=== PATIENT | male | born 1965 | race Caucasian/White ===

== ENCOUNTER 2017-06-26 04:20 | Emergency (ER) | payer SELFPAY ==
[~2017-06-26] VITALS: Ht 180.3 cm; Wt 81.5 kg
[2017-06-26 04:23] VITALS: BP 155/95; PULSE 75; RESP 18; TEMP 97.8; O2SAT 98
[2017-06-26] MEDS ORDERED: [UNRECOGNIZED DRUG - CODE] PO (04:29)
[2017-06-26] MEDS ORDERED: DIATRIZOATE MEGLUM/DIATRIZOATE SOD 9 ML CUP ONE (05:19)
--- NOTE | 2017-06-26 05:19 | PD ---
HPI Chief Complaint: Lump, Cyst, Hernia Time Seen by Provider: 04:36 Travel History International Travel<30 days: No Contact w/Intl Traveler<30days: No Traveled to known affect area: No History of Present Illness HPI Patient is a 51-year-old male who recently moved down here from [place]. he says that he has noticed that he's having back pain had an x-ray that showed he is body is "trying to grow a 6th lumbar spine vertebrae " slightly bizarre answer he's been wearing lower back support belt now he notices that he is having bulging in his hernia area right scrotum. Worse at night he says he is able to push it back in himself. Now it's gotten worse in the last few days he comes to the ER It was hurting him so he was worried it was "getting to a critical point" Patient seems to give long-winded responses to simple questions about his physicality and has slightly bizarre affect. However his thought are related although his thoughts are slightly tangential. Denies nausea vomiting diarrhea no chest pain no sweating or diaphoresis. He has not seen another doctor for this complaint [facility] Past Medical History Musculoskeletal: Yes (chronic back pain, R knee pain, ) Tetanus Vaccination: Unknown Influenza Vaccination: No Past Surgical History Surgical History: No Previous Surgery Social History Alcohol Use: No Tobacco Use: No Substance Use: No Allergies-Medications (Allergen,Severity, Reaction): Coded Allergies: No Known Drug Allergies (Verified Allergy, Unknown, 06/26/17) Reported Meds & Prescriptions Reported Meds & Active Scripts Active Reported B-12 (Cobalamine Combinations) 100-5,000 Mcg Subl 1 Tab PO DAILY Review of Systems Except as stated in HPI: all other systems reviewed are Neg Genitourinary: Positive: Other (right-sided inguinal pain) Physical Exam Narrative GENERAL: Nontoxic-appearing awake alert SKIN: Warm and dry. HEAD: Atraumatic. Normocephalic. EYES: Pupils equal and round. No scleral icterus. No injection or drainage. ENT: No nasal bleeding or discharge. Mucous membranes pink and moist. NECK: Trachea midline. No JVD. CARDIOVASCULAR: Regular rate and rhythm. RESPIRATORY: No accessory muscle use. Clear to auscultation. Breath sounds equal bilaterally. GASTROINTESTINAL: Abdomen inguinal right sided hernia exam there is no bowel protruding through the direct or indirect canal. Bilateral there is no hernia patient coughs there is no bulging no hernias felt the base of the penis Testicles are normal bilateral area the rest of the abdomen is soft, non-tender , nondistended. Hepatic and splenic margins not palpable. MUSCULOSKELETAL: Extremities without clubbing, cyanosis, or edema. No obvious deformities. NEUROLOGICAL: Awake and alert. No obvious cranial nerve deficits. Motor grossly within normal limits. Five out of 5 muscle strength in the arms and legs. Normal speech. PSYCHIATRIC: Appropriate mood and affect; insight and judgment normal. Data Data Last Documented VS Vital Signs Date Time Temp Pulse Resp B/P (MAP) Pulse Ox O2 Delivery O2 Flow Rate FiO2 06/26/17 08:44 06/26/17 07:12 73 18 06/26/17 07:11 98 Room Air 06/26/17 04:23 97.8 Orders Orders Complete Blood Count With Diff (06/26/17 05:15) Comprehensive Metabolic Panel (06/26/17 05:15) Prothrombin Time / Inr (Pt) (06/26/17 05:15) Ct Abd/Pel W Iv Contrast(Rout) (06/26/17 ) Oral Contrast - Adult (06/26/17 05:18) Diatrizoate Liq ( Gastromaciel Liq) (06/26/17 05:19) Iohexol 350 Inj (Omnipaque 350 Inj) (06/26/17 07:41) Ed Discharge Order (06/26/17 08:26) Labs Laboratory Tests Test 06/26/17 05:00 White Blood Count 4.4 TH/MM3 Red Blood Count 4.30 MIL/MM3 Hemoglobin 12.8 GM/DL Hematocrit 37.1 % Mean Corpuscular Volume 86.3 FL Mean Corpuscular Hemoglobin 29.8 PG Mean Corpuscular Hemoglobin Concent 34.5 % Red Cell Distribution Width 13.1 % Platelet Count 311 TH/MM3 Mean Platelet Volume 7.6 FL Neutrophils (%) (Auto) 55.9 % Lymphocytes (%) (Auto) 29.5 % Monocytes (%) (Auto) 9.9 % Eosinophils (%) (Auto) 4.2 % Basophils (%) (Auto) 0.5 % Neutrophils # (Auto) 2.5 TH/MM3 Lymphocytes # (Auto) 1.3 TH/MM3 Monocytes # (Auto) 0.4 TH/MM3 Eosinophils # (Auto) 0.2 TH/MM3 Basophils # (Auto) 0.0 TH/MM3 CBC Comment DIFF FINAL Differential Comment Prothrombin Time 11.7 SEC Prothromb Time International Ratio 1.2 RATIO Blood Urea Nitrogen 10 MG/DL Creatinine 0.96 MG/DL Random Glucose 92 MG/DL Total Protein 6.9 GM/DL Albumin 3.9 GM/DL Calcium Level 8.2 MG/DL Alkaline Phosphatase 79 U/L Aspartate Amino Transf (AST/SGOT) 25 U/L Alanine Aminotransferase (ALT/SGPT) 31 U/L Total Bilirubin 0.3 MG/DL Sodium Level 141 MEQ/L Potassium Level 4.2 MEQ/L Chloride Level 108 MEQ/L Carbon Dioxide Level 27.5 MEQ/L Anion Gap 6 MEQ/L Estimat Glomerular Filtration Rate 83 ML/MIN [facility] Medical Decision Making Medical Screen Exam Complete: Yes Emergency Medical Condition: Yes Differential Diagnosis pt has abdo pain colitis vs hernia inguinal vs radiculopathy SBO other , possible slight hernia Narrative Course pt has CT pending PE exam does not reveal a hernia so my PE does not reveal diagnosis , CT will define Diagnosis Primary Impression: Abdominal pain Qualified Codes: R10.31 - Right lower quadrant pain Patient Instructions: Abdominal Pain (ED), General Instructions Erik Murillo MD Jun 26, 2017 05:19
[2017-06-26 05:29] LABS: AUTOMATED NEUTROPHIL # 2.5 TH/MM3 (1.8-7.7); BASOPHIL % 0.5 % (0.0-2.0); EOSINOPHIL # 0.2 TH/MM3 (0-0.4); EOSINOPHIL % 4.2 % (0.0-4.0); HEMATOCRIT 37.1 % (39.0-51.0); HEMOGLOBIN 12.8 GM/DL (13.0-17.0); LYMPH % 29.5 % (9.0-44.0); LYMPHOCYTE # 1.3 TH/MM3 (1.0-4.8); MEAN CELL VOLUME 86.3 FL (80.0-100.0); MEAN CORPUSCULAR HEMOGLOBIN 29.8 PG (27.0-34.0); MEAN CORPUSCULAR HGB CONC 34.5 % (32.0-36.0); MEAN PLATELET VOLUME 7.6 FL (7.0-11.0); MONO % 9.9 % (0.0-8.0); MONOCYTE # 0.4 TH/MM3 (0-0.9); NEUT % 55.9 % (16.0-70.0); PLATELET COUNT 311 TH/MM3 (150-450); RED CELL DISTRIBUTION WIDTH 13.1 % (11.6-17.2); WHITE BLOOD COUNT 4.4 TH/MM3 (4.0-11.0)
[2017-06-26 05:41] LABS: INTERNATIONAL NORMALIZED RATIO 1.2 RATIO; PROTHROMBIN TIME - PATIENT 11.7 SEC (9.8-11.6)
[2017-06-26 05:58] LABS: ALBUMIN 3.9 GM/DL (3.4-5.0); ALT (GPT) 31 U/L (12-78); AST (GOT) 25 U/L (15-37); BICARBONATE 27.5 MEQ/L (21.0-32.0); BLOOD UREA NITROGEN 10 MG/DL (7-18); CALCIUM 8.2 MG/DL (8.5-10.1); CHLORIDE 108 MEQ/L (98-107); CREATININE 0.96 MG/DL (0.60-1.30); GLOMERULAR FILTRATION RATE 83 ML/MIN (>89); GLUCOSE,RANDOM 92 MG/DL (74-106); SODIUM (NA) 141 MEQ/L (136-145)
[2017-06-26 06:01] LABS: ALKALINE PHOSPHATASE 79 U/L (45-117); TOTAL BILIRUBIN ADULT 0.3 MG/DL (0.2-1.0); TOTAL PROTEIN 6.9 GM/DL (6.4-8.2)
[2017-06-26 07:11] VITALS: BP 127/75; PULSE 73; RESP 18; O2SAT 98
[2017-06-26] MEDS ORDERED: IOHEXOL 350 MG/ML 10 ML VIAL (for RAD DIAG) IVCONTRAST ONE (07:41)
--- NOTE | 2017-06-26 08:03 | RADRPT ---
EXAM DATE/TIME: 06/26/2017 07:28 [place] COMPARISON: No previous studies available for comparison. INDICATIONS : Right sided groin pain. IV CONTRAST: 94 cc Omnipaque 350 (iohexol) IV ORAL CONTRAST: Prescribed oral contrast ingested. RADIATION DOSE: 13.51 CTDIvol (mGy) MEDICAL HISTORY : None SURGICAL HISTORY : None. ENCOUNTER: Initial ACUITY: 1 day PAIN SCALE: 5/10 LOCATION: Right lower quadrant TECHNIQUE: Volumetric scanning of the abdomen and pelvis was performed. Using automated exposure control and ad justment of the mA and/or kV according to patient size, radiation dose was kept as low as reasonably achievable to obtain optimal diagnostic quality images. DICOM format image data is available electro nically for review and comparison. FINDINGS: No pleural or pericardial effusions. Liver, gallbladder, spleen, pancreas, adrenal glands are unremar kable. Bilateral renal cysts are noted including left parapelvic cysts, 8mm cortical cyst at the midp ole, and a right mid pole 2.1 cm cyst. No adenopathy or aneurysm. Urinary bladder, prostate unremarka ble. Small bowel, large bowel, stomach unremarkable. There no inflammatory changes identified in the abdomen or pelvis. Lung bases are clear. Osseous structures are intact. There no inflammatory changes seen in the right lower quadrant. CONCLUSION: Bilateral renal cysts. No inflammatory changes are identified in the abdomen or pelvis. Italo Childs MD on June 26, 2017 at 7:59 Board Certified Radiologist. This report was verified electronically.
--- NOTE | 2017-06-26 08:35 | PD ---
Data Data Last Documented VS Vital Signs Date Time Temp Pulse Resp B/P (MAP) Pulse Ox O2 Delivery O2 Flow Rate FiO2 06/26/17 08:44 06/26/17 07:12 73 18 06/26/17 07:11 98 Room Air 06/26/17 04:23 97.8 Orders Orders Complete Blood Count With Diff (06/26/17 05:15) Comprehensive Metabolic Panel (06/26/17 05:15) Prothrombin Time / Inr (Pt) (06/26/17 05:15) Ct Abd/Pel W Iv Contrast(Rout) (06/26/17 ) Oral Contrast - Adult (06/26/17 05:18) Diatrizoate Liq ( Gastromaciel Liq) (06/26/17 05:19) Iohexol 350 Inj (Omnipaque 350 Inj) (06/26/17 07:41) Ed Discharge Order (06/26/17 08:26) Labs Laboratory Tests Test 06/26/17 05:00 White Blood Count 4.4 TH/MM3 Red Blood Count 4.30 MIL/MM3 Hemoglobin 12.8 GM/DL Hematocrit 37.1 % Mean Corpuscular Volume 86.3 FL Mean Corpuscular Hemoglobin 29.8 PG Mean Corpuscular Hemoglobin Concent 34.5 % Red Cell Distribution Width 13.1 % Platelet Count 311 TH/MM3 Mean Platelet Volume 7.6 FL Neutrophils (%) (Auto) 55.9 % Lymphocytes (%) (Auto) 29.5 % Monocytes (%) (Auto) 9.9 % Eosinophils (%) (Auto) 4.2 % Basophils (%) (Auto) 0.5 % Neutrophils # (Auto) 2.5 TH/MM3 Lymphocytes # (Auto) 1.3 TH/MM3 Monocytes # (Auto) 0.4 TH/MM3 Eosinophils # (Auto) 0.2 TH/MM3 Basophils # (Auto) 0.0 TH/MM3 CBC Comment DIFF FINAL Differential Comment Prothrombin Time 11.7 SEC Prothromb Time International Ratio 1.2 RATIO Blood Urea Nitrogen 10 MG/DL Creatinine 0.96 MG/DL Random Glucose 92 MG/DL Total Protein 6.9 GM/DL Albumin 3.9 GM/DL Calcium Level 8.2 MG/DL Alkaline Phosphatase 79 U/L Aspartate Amino Transf (AST/SGOT) 25 U/L Alanine Aminotransferase (ALT/SGPT) 31 U/L Total Bilirubin 0.3 MG/DL Sodium Level 141 MEQ/L Potassium Level 4.2 MEQ/L Chloride Level 108 MEQ/L Carbon Dioxide Level 27.5 MEQ/L Anion Gap 6 MEQ/L Estimat Glomerular Filtration Rate 83 ML/MIN [facility] Medical Record Reviewed: Yes Supervised Visit with NOÉ: No Narrative Course CBC & BMP Diagram 06/26/17 05:00 Total Protein 6.9, Albumin 3.9, Calcium Level 8.2 L, Alkaline Phosphatase 79, Aspartate Amino Transf (AST/SGOT) 25, Alanine Aminotransferase (ALT/SGPT) 31, Total Bilirubin 0.3 Last Impressions Abdomen/Pelvis CT 06/26/17 0000 Signed Impressions: Service Date/Time: June 07:28 - CONCLUSION: Bilateral renal cysts. No inflammatory changes are identified in the abdomen or pelvis. Italo Childs MD On exam there is no incarcerated or strangulated hernia. Pt may benefit from surgical evaluation. Return precautions discussed. Diagnosis Primary Impression: Abdominal pain Qualified Codes: R10.9 - Unspecified abdominal pain Referrals: Hermann Santoyo MD R inguinal hernia Please call Dr Santoyo's office once Patient Assistance Program has been activated Patient Assistance Program Patient Instructions: General Instructions, Abdominal Pain (ED) Departure Forms: Tests/Procedures Disposition: 01 DISCHARGE HOME Condition: Stable Michael Tillman MD Jun 26, 2017 08:35
== END 2017-06-26 09:00 | disposition home or self-care (01) ==
LOC: NEPC 04:20
DX: R10.31 Right lower quadrant pain (principal); K40.90 Unilateral inguinal hernia, without obstruction or gangrene, not specified as recurrent
CPT/HCPCS: 74177; 80053; 85025; 85610; 99284; Q9963; Q9967